=== PATIENT | male | born 1950 | race Caucasian/White ===

== ENCOUNTER 2025-01-01 13:43 | Outpatient (CLI) | payer MEDICARE | END 2025-01-01 13:44 | disposition home or self-care (01) | LOC: CSHLAB 13:43 | PROVIDERS: ATTEND Surgery | DX: Z01.818 Encounter for other preprocedural examination (principal); D3A.8 Other benign neuroendocrine tumors | CPT/HCPCS: 71045; 93005; 93010 ==

== ENCOUNTER 2025-01-02 05:50 | Day surgery (SDC) | payer MEDICARE ==
[2025-01-01 14:11] VITALS: BMI 25.9
[2025-01-02] MEDS ORDERED: Bupivacaine HCl 0.5%/Epinephrine 1:200,000/PF 30 ml Vial ONE (06:23)
[2025-01-02] MEDS ORDERED: PROPOFOL 20 ML ONE (06:49)
[2025-01-02] MEDS ORDERED: Lidocaine 1% PF 5 ML VIAL ONE (06:51)
[2025-01-02] MEDS ORDERED: CEFAZOLIN 2 GM VIAL ONE (06:54)
[2025-01-02] MEDS ORDERED: Ondansetron PF 4 MG/2 ML Vial ONE (07:31)
== END 2025-01-02 08:32 | disposition home or self-care (01) ==
LOC: CSHSDC 05:50
PROVIDERS: ATTEND Surgery
PROC: 0JH60WZ Insertion of Totally Implantable Vascular Access Device into Chest Subcutaneous Tissue and Fascia, Open Approach (ICD-10-PCS; principal; 2025-01-02)
DX: C25.9 Malignant neoplasm of pancreas, unspecified (principal); K21.9 Gastro-esophageal reflux disease without esophagitis; Z87.891 Personal history of nicotine dependence; Z79.899 Other long term (current) drug therapy
CPT/HCPCS: 36561; J1100; J1642; J2704; J3010; A6258; C1788